=== PATIENT | male | born 1995 | race Caucasian/White ===

== ENCOUNTER 2023-08-28 17:31 | Emergency (ER) | payer SELFPAY ==
[2023-08-28] MEDS ORDERED: Ibuprofen 600 MG Tab PO ONE (18:49)
[2023-08-28] MEDS ORDERED: Acetaminophen 500 MG Tab PO ONE (18:50)
[2023-08-28 19:39] LABS: CORONAVIRUS COVID-19 NAA NEGATIVE (NEGATIVE); INFLUENZA A NAA NEGATIVE (NEGATIVE); INFLUENZA B NAA POSITIVE (NEGATIVE)
== END 2023-08-28 20:11 | disposition home or self-care (01) ==
LOC: MW.ED 17:31
DX: B34.9 Viral infection, unspecified (principal)
CPT/HCPCS: 0240U; 99283; A9270

== ENCOUNTER 2025-03-22 19:09 | Emergency (ER) | payer SELFPAY ==
[2025-03-22] MEDS ORDERED: Sodium Chloride 0.9% 10 ML Syringe FLUSH PRN (19:13)
[2025-03-22] MEDS ORDERED: Sodium Chloride 0.9% 2.5 ML Syringe FLUSH PRN (19:13)
[2025-03-22 19:26] LABS: BASOPHILS ABSOLUTE AUTO 0.06 K/uL (0.00-0.20); BASOPHILS PERCENT AUTO 0.5 % (0.0-1.0); EOSINOPHILS ABSOLUTE AUTO 0.18 K/uL (0.00-0.45); EOSINOPHILS PERCENT AUTO 1.6 % (0.0-6.0); IMMATURE GRAN ABSOLUTE AUTO 0.02 K/uL (0.00-0.05); IMMATURE GRAN PERCENT AUTO 0.2 % (0.0-0.4); LYMPHOCYTES ABSOLUTE AUTO 3.65 K/uL (1.00-4.80); LYMPHOCYTES PERCENT AUTO 32.4 % (24.0-44.0); MEAN PLATELET VOLUME 11.6 fL (9.4-12.4); MONOCYTES ABSOLUTE AUTO 0.79 K/uL (0.00-0.80); MONOCYTES PERCENT AUTO 7.0 % (0.0-8.0); NEUTROPHILS ABSOLUTE AUTO 6.56 K/uL (1.80-7.70); NEUTROPHILS PERCENT AUTO 58.3 % (41.0-71.0); NRBC ABSOLUTE 0.00 K/uL (0.00-0.02); NRBC PERCENT 0.0 /100WBC (0.0-0.2); PLATELET COUNT,PLT 242 K/uL (150-400); RED BLOOD CELL COUNT 5.69 M/uL (4.52-5.90); WHITE BLOOD CELL COUNT,WBC 11.26 K/uL (3.9-11.3)
[2025-03-22] MEDS: Ondansetron 4 MG/2 ML SDV IVPUSH ONE (19:27)
[2025-03-22] MEDS: Alum Hydrox/Mag Hydrox/Simeth 15 ML, Metoclopramide 5 MG, Lidocaine 2% 5 ML PO ONE (19:31)
[2025-03-22 19:50] LABS: A/G RATIO 1.3 (0.9-1.6); ALANINE AMINOTRANSFERASE,ALT 51.0 IU/L (14-63); ASPARTATE AMNIOTRANSFERASE,AST 32.0 IU/L (15-37); BILIRUBIN TOTAL 0.7 mg/dL (0.2-1.0); BLOOD UREA NITROGEN,BUN 20.0 mg/dL (7.0-18.0); CARBON DIOXIDE,CO2 26.1 mmol/L (21.0-32.0); CHLORIDE,CL 102.0 mmol/L (98-107); CREATININE 1.1 mg/dL (0.8-1.3); EST CRCL DRUG DOSING (CG) 87.81 mL/min; GLUCOSE RANDOM 86.0 mg/dL (74-106); POTASSIUM,K 4.0 mmol/L (3.5-5.1); PROTEIN TOTAL,TP 8.6 g/dL (6.4-8.2); SODIUM,NA 141.0 mmol/L (136-148)
[2025-03-22 19:51] LABS: ESTIMATED GFR 92.0 mL/min (>60)
[2025-03-22 20:08] LABS: APPEARANCE,URINE CLEAR; GLUCOSE,URINE NEGATIVE (NEGATIVE); OCCULT BLOOD,URINE NEGATIVE (NEGATIVE)
== END 2025-03-22 20:51 | disposition home or self-care (01) ==
LOC: MW.ED 19:09
DX: R10.13 Epigastric pain (principal); E86.0 Dehydration; Z79.899 Other long term (current) drug therapy; Z75.3 Unavailability and inaccessibility of health-care facilities
CPT/HCPCS: 36415; 80053; 81003; 83690; 85025; 96361; 96374; 96375; 99284; A9270; J2270; J2405; J3490; J7030